=== PATIENT | male | born 1965 | race Caucasian/White ===

== ENCOUNTER → 2018-10-10 | Outpatient (CLI) | payer OTHER | END | disposition home or self-care (01) | LOC: CVU 07:41 | PROVIDERS: ATTEND Physician Assistant | DX: I27.21 Secondary pulmonary arterial hypertension (principal); R94.31 Abnormal electrocardiogram [ECG] [EKG] | CPT/HCPCS: 93306 ==

== ENCOUNTER 2018-10-27 07:42 | Outpatient (CLI) | payer OTHER ==
[~2018-10-27 07:42] MED LIST: REGADENOSON 0.4 MG/5 ML SYRINGE ONE
== END 2018-10-27 23:59 | disposition home or self-care (01) ==
LOC: CFH 07:42
PROVIDERS: ATTEND Physician Assistant
DX: R94.31 Abnormal electrocardiogram [ECG] [EKG] (principal); I27.21 Secondary pulmonary arterial hypertension
CPT/HCPCS: 78452; 93017; A9502; J2785

== ENCOUNTER → 2019-09-04 | Outpatient (CLI) | payer OTHER ==
[2019-09-04 13:05] LABS: BASOPHILS # (AUTO) 0.03 x10^3/uL (0-0.1); BASOPHILS % (AUTO) 1 % (0-1); EOSINOPHILS # (AUTO) 0.06 x10^3/uL (0-0.4); EOSINOPHILS % (AUTO) 1 % (1-7); LYMPHOCYTES # (AUTO) 1.48 x10^3/uL (1-3.4); LYMPHOCYTES % (AUTO) 31 % (22-44); MD NO; MEAN CORPUSCULAR HEMOGLOBIN 34.2 pg (27.5-34.5); MEAN CORPUSCULAR HGB CONC 33.9 g/dL (33.2-36.2); MEAN CORPUSCULAR VOLUME 100.8 fL (81-97); MEAN PLATELET VOLUME 7.1 fL (7.4-10.4); MONOCYTES # (AUTO) 0.38 x10^3/uL (0.2-0.8); MONOCYTES % (AUTO) 8 % (2-9); NEUTROPHILS # (AUTO) 2.78 x10^3/uL (1.8-6.8); NEUTROPHILS % (AUTO) 59 % (42-75); PLATELET COUNT 233 x10^3/uL (130-400); RED BLOOD COUNT 4.41 x10^6/uL (4.38-5.82); RED CELL DISTRIBUTION WIDTH 14.3 % (9.4-14.8)
[2019-09-04 13:42] LABS: CHLORIDE 108 mmol/L (98-107)
[2019-09-04 13:57] LABS: ALANINE AMINOTRANSFERASE 44 U/L (12-78); ALKALINE PHOSPHATASE 77 U/L (45-117); ANION GAP 7 mmol/L (5-15); BILIRUBIN,TOTAL 1.2 mg/dL (0.2-1.0); CALCIUM 8.4 mg/dL (8.5-10.1); CHOL/HDL RATIO 2.1; CHOLESTEROL, TOTAL 224 mg/dL (140-239); CREATININE 1.06 mg/dL (0.7-1.3); HDL CHOL % 47 % (26-37); HDL CHOLESTEROL (DIRECT) 105 mg/dL (40-60); LDL CHOLESTEROL,CALCULATED 84 mg/dL (54-169); LDL/HDL RATIO 0.8 (0.5-3.0); TOTAL PROTEIN 7.4 g/dL (6.4-8.2); TRIGLYCERIDES 175 mg/dL (50-200); VLDL CHOLESTEROL 35 mg/dL (0-25)
== END | disposition home or self-care (01) ==
LOC: CFH 07:39
PROVIDERS: ATTEND Nurse Practitioner Family
DX: E55.9 Vitamin D deficiency, unspecified (principal); E78.00 Pure hypercholesterolemia, unspecified; G47.00 Insomnia, unspecified; F41.9 Anxiety disorder, unspecified
CPT/HCPCS: 36415; 80053; 80061; 82306; 85025

== ENCOUNTER → 2020-04-14 | Outpatient (CLI) | payer OTHER ==
[2020-04-14 14:52] LABS: ALANINE AMINOTRANSFERASE 44 U/L (12-78); ANION GAP 4 mmol/L (5-15); CALCIUM 8.9 mg/dL (8.5-10.1); CHLORIDE 110 mmol/L (98-107); CREATININE 1.09 mg/dL (0.7-1.3)
[2020-04-14 14:55] LABS: ALKALINE PHOSPHATASE 68 U/L (45-117); BILIRUBIN,TOTAL 0.5 mg/dL (0.2-1.0); TOTAL PROTEIN 7.3 g/dL (6.4-8.2)
== END | disposition home or self-care (01) ==
LOC: LAB 14:15
PROVIDERS: ATTEND Nurse Practitioner Family
DX: F31.9 Bipolar disorder, unspecified (principal)
CPT/HCPCS: 36415; 80053; 80178

== ENCOUNTER 2020-06-03 21:07 | Emergency (ER) | payer OTHER ==
[~2020-06-03] VITALS: Ht 188 cm; Wt 100.0 kg
[2020-06-03 21:12] VITALS: BP 138/82
--- NOTE | 2020-06-03 21:18 | NUR ---
pt bib remsa to room 39, appears intoxicated, and smells of alcoholic beverages. pt follows commands but is restless and needs commands repeated as he ignores them at first. pt placed on cr monitor, and has a piv 20g to the right forearm. flushes easy, no redness or swelling. Pt received 500ml bolus of NS enroute via ems, and 4mg of zofran. blood sugar in the field was 116mg/dl
[2020-06-03 21:48] LABS: MEAN CORPUSCULAR HEMOGLOBIN 34.6 pg (27.5-34.5); MEAN CORPUSCULAR HGB CONC 34.3 g/dL (33.2-36.2); MEAN PLATELET VOLUME 6.5 fL (7.4-10.4); PLATELET COUNT 294 x10^3/uL (130-400); RED BLOOD COUNT 4.67 x10^6/uL (4.38-5.82); RED CELL DISTRIBUTION WIDTH 14.8 % (9.4-14.8)
--- NOTE | 2020-06-03 21:55 | NUR ---
pt attempting to get out of bed, and states he needs to pee. a urinal is provided to the pt and reoriented to get back in bed, as he remains apparently intoxicated and not as steady on his feet. pt complied and v/u and back in bed. provided urine sample clear and yellow, and it was sent to lab.
[2020-06-03 21:57] LABS: ALBUMIN 4.1 g/dL (3.4-5.0); ANION GAP 7 mmol/L (5-15); CALCIUM 7.7 mg/dL (8.5-10.1); CHLORIDE 112 mmol/L (98-107)
[2020-06-03 21:58] LABS: SALICYLATE LEVEL < 1.7 mg/dL (2.8-20.0)
[2020-06-03 21:59] LABS: ALANINE AMINOTRANSFERASE 44 U/L (12-78); ALKALINE PHOSPHATASE 74 U/L (45-117); BILIRUBIN,TOTAL 0.2 mg/dL (0.2-1.0); CREATININE 1.03 mg/dL (0.7-1.3); TOTAL PROTEIN 7.6 g/dL (6.4-8.2)
--- NOTE | 2020-06-03 22:00 | NUR ---
pts family has arrived, they were updated to situation and are in the room now with the pt. pts and son.
[2020-06-03 22:04] LABS: MD YES
[2020-06-03 22:07] LABS: BASOS#(MANUAL) 0.06 x10^3/uL (0-0.1); BASOS% (MANUAL) 1 % (0-1); EOS#(MANUAL) 0.06 x10^3/uL (0.0-0.4); EOS% (MANUAL) 1 % (1-7); LYMPH#(MANUAL) 2.53 x10^3/uL (1-3.4); LYMPHS% (MANUAL) 46 % (22-44); MONOS#(MANUAL) 0.33 x10^3/uL (0.3-2.7); MONOS% (MANUAL) 6 % (2-9); REACTIVE LYMPHS # (MANUAL) 0.11 x10^3/uL (0-0); REACTIVE LYMPHS % (MANUAL) 2 % (0-0); SEG#(MANUAL) 2.42 x10^3/uL (1.8-6.8); SEGS% (MANUAL) 44 % (42-75)
[2020-06-03 22:08] LABS: <PLATELET ESTIMATE> ADEQUATE; SMALL PLATELETS 1+
--- NOTE | 2020-06-03 22:22 | NUR ---
pt resting in bed, no acute distress. family at bedside.
[2020-06-03 22:24] LABS: AMPHETAMINE SCREEN, URINE Negative (Negative); BARBITURATE SCREEN, URINE Negative (Negative); BENZODIAZEPINE SCREEN, URINE Negative (Negative); CANNABINOID SCREEN, URINE Negative (Negative); COCAINE SCREEN, URINE Negative (Negative); METHADONE SCREEN, URINE Negative (Negative); OPIATE SCREEN, URINE Negative (Negative)
--- NOTE | 2020-06-03 23:23 | NUR ---
pt woke up and tried to get out of bed, and was standing at end of bed. states he needs to pee. a urinal was provided to the pt and he used it in the room. pts went home to take the child home. Asked to be called when pt is discharged. pt states he is good to go, and wants to go home and sleep it off there. knows where he is and is a&ox4. updated
--- NOTE | 2020-06-03 23:24 | NUR ---
pts provided phone number to be called. Julissa : [phone]
--- NOTE | 2020-06-03 23:41 | NUR ---
pt ambulating in room, states he needs to use the restroom. urinal provided to pt and he used it. follow up breathalyzer is 0.28 pt a&o to place and time and situation. pts called to come pick him up as he is being dc to home. f/u and d/c instructions given to pt and and they both v/u. pt d/c'd without incident. and with follow up care and to find an AA meeting and care.
--- NOTE | 2020-06-04 00:08 | NUR ---
pt a&ox4, stands up and ambulates some. pt d/c'd to wifes care and home, with f/u and d/c instructions and follow up to AA meeting instructions and information. pt v/u and pts also v/u. breathalyzer was 0.28 and is a daily drinker of alcohol, per pt for almost a year now. pt stable for discharge and states he wants to go home now, and doesn't want to be a bother. Pt reoriented to the care provided and that he is not a bother. Pt still feels he's good to go home, and cleared medically prior to dc
== END 2020-06-04 00:10 | disposition home or self-care (01) ==
LOC: ED 21:37
DX: F10.220 Alcohol dependence with intoxication, uncomplicated (principal); Y90.0 Blood alcohol level of less than 20 mg/100 ml
CPT/HCPCS: 36415; 80053; 80299; 80307; 80320; 80329; 85025; 99283; G0480